=== PATIENT | male | born 1990 | race African-American/Black ===

== ENCOUNTER 2018-02-14 18:22 | Emergency (ER) | payer OTHER, BC ==
[~2018-02-14] VITALS: Ht 180.3 cm; Wt 136.0 kg
[2018-02-14 18:22] VITALS: BP 153/94
[2018-02-14] MEDS ORDERED: predniSONE 20 MG TABLET PO ONE (18:45)
[2018-02-14] MEDS ORDERED: PRED20TA PO (18:47)
--- NOTE | 2018-02-14 18:48 | PHYS DOC ---
Past History Past Medical History: No Pertinent History Past Surgical History: No Surgical History Smoking: Non-smoker Additional Smoking Information: chewing tobacco Alcohol Use: Occasionally Drug Use: None Adult General Chief Complaint Chief Complaint: SKIN PROBLEM HPI HPI 28-year-old male presents with report of burning/itching to bilateral hands and forearms. 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 Patient reports concern that he might of been exposed to a substance. Denies noting any liquid or powder on his hands. Patient reports he has since washes hands with continuation of symptoms. Denies fever or chills. Denies shortness of breath or cough. Denies known allergy to any chemicals or foods. Review of Systems Review of Systems Constitutional: Denies fever or chills [] Eyes: Denies change in visual acuity, redness, or eye pain [] HENT: Denies nasal congestion or sore throat [] Respiratory: Denies cough or shortness of breath [] Cardiovascular: Denies chest pain or palpitations GI: Denies abdominal pain, nausea, vomiting, or diarrhea []] Musculoskeletal: Denies back pain or joint pain [] Integument: Reports rash; denies swelling or redness] Neurologic: Denies headache, focal weakness or sensory changes [] Complete systems were reviewed and found to be within normal limits, except as documented in this note. Allergies Allergies Allergies Coded Allergies Type Severity Reaction Last Updated Verified Penicillins Allergy Unknown 02/14/18 Yes Physical Exam Physical Exam Constitutional: Well developed, well nourished, no acute distress, non-toxic appearance. [] HENT: Normocephalic, atraumatic, Eyes: Conjunctiva normal, no discharge. [] Neck: Normal range of motion, no tenderness, supple Cardiovascular: Heart rate regular rhythm, no murmur [] Lungs & Thorax: Bilateral breath sounds clear to auscultation; no wheezes, rhonchi , or rales Skin: Warm, dry, mild irritation/dryness to bilateral dorsum of hands and to anterior distal forearms Extremities: No tenderness, ROM intact, no edema. [] Neurologic: Alert and oriented X 3, normal motor function, normal sensory function, no focal deficits noted. [] Psychologic: Affect normal, judgement normal, mood normal. [] Current Patient Data Vital Signs Vital Signs Date Time Temp Pulse Resp B/P (MAP) Pulse Ox O2 Delivery O2 Flow Rate FiO2 02/14/18 18:22 98.7 95 18 97 Room Air EKG EKG [] Radiology/Procedures Radiology/Procedures [] Course & Med Decision Making Course & Med Decision Making Patient presents with history of present illness and physical exam concerning for contact dermatitis. No airway compromise. Vital signs stable. Symptomatic treatment provided with oral steroid. Patient educated to use protective ointment such as Aquaphor. Patient stable for discharge with outpatient follow- up with PCP. Discussed findings and plan with patient, who acknowledges understanding and agreement. Dragon Disclaimer Dragon Disclaimer This electronic medical record was generated, in whole or in part, using a voice recognition dictation system. Departure Departure: Impression: Primary Impression: Contact dermatitis Disposition: 01 HOME, SELF-CARE Condition: STABLE Referrals: JOE HOWELL MD (PCP) Patient Instructions: Contact Dermatitis, Obsi-[id number] Additional Instructions: Use Aquaphor skin protectant several times daily until symptoms improved/ resolved. Scripts Prednisone (PREDNISONE) 20 Mg Tablet 2 TAB PO DAILY for Rash, #8 TAB Start on Sunday02/15/18 Prov: LUC MOORE DO 02/14/18 Problem Qualifiers Primary Impression: Contact dermatitis Contact dermatitis type: irritant Contact dermatitis trigger: unspecified trigger Qualified Codes: L24.9 - Irritant contact dermatitis, unspecified cause LUC MOORE DO Feb 14, 2018 18:48
== END 2018-02-14 19:07 | disposition home or self-care (01) ==
LOC: ER 18:22
DX: L24.9 Irritant contact dermatitis, unspecified cause (principal); F17.220 Nicotine dependence, chewing tobacco, uncomplicated; Z88.0 Allergy status to penicillin
CPT/HCPCS: 99283; J7512